=== PATIENT | male | born 1955 | race Caucasian/White ===

== ENCOUNTER 2021-06-16 19:09 | Emergency (ER) | payer SELFPAY ==
[2021-06-16] MEDS ORDERED: Diphtheria,Pertussis(Acell),Tetanus Vaccine 0.5 ML SDV IM ONE (19:20)
--- NOTE | 2021-06-16 19:55 | EDM.PDOC ---
ED HPI GENERAL MEDICAL PROBLEM - General Chief Complaint: Laceration Stated Complaint: CUT FINGER Time Seen by Provider: 06/16/21 19:10 Source of Information: Reports: Patient History Limitations: Reports: No Limitations - History of Present Illness INITIAL COMMENTS - FREE TEXT/NARRATIVE: THis patient presents to the ED for evaluation of a finger laceration. He states he was using a wood box maker when he injured his left 2nd digit. He states there was a lot of blood but now "it looks better." He denies other injuries or concerns. He denies recent illnesses, fever, cough. ED ROS GENERAL - Review of Systems Review Of Systems: Comprehensive ROS is negative, except as noted in HPI. ED EXAM, SKIN/RASH Exam: See Below Exam Limited By: No Limitations General Appearance: Alert, No Apparent Distress Eye Exam: Bilateral Eye: PERRL Ears: Normal External Exam Nose: Normal Inspection Head: Atraumatic, Normocephalic Neck: Normal Inspection, Full Range of Motion Respiratory/Chest: No Respiratory Distress, No Accessory Muscle Use Neurological: Alert, Oriented Skin: Warm, Dry, Intact, Wound/Incision (1 cm superficial laceration to the dorsum of the (L) 2nd digit between the MCP and the PIP joints. Distal CMS intact.) ED SKIN PROCEDURES - Laceration/Wound Repair Left Digit - 2nd (Index) Appearance: Superficial Distal NVT: Neuro & Vascular Intact Skin Prep: Chlorhexidine (Hibiciens), Saline Closed with: Steri-Strips (4; wound closed and bleeding controlled on arrival.) Lac/Wound length In cm: 1 Sterile Dressing Applied: Provider Tetanus Status Addressed: Yes Complications: No Course - Re-Assessments/Exams Free Text/Narrative Re-Assessment/Exam: This patient presents to the emergency room for evaluation of a laceration to his left second digit. The wound was carefully evaluated and explored. The laceration was closed with Steri-Strips as noted above. There is no evidence of muscular, tendon, or bony damage with this laceration. There are no signs of foreign body. Possible complications including infection, and scarring were reviewed with the patient. Follow-up with his primary care provider is indicated for 5 to 7 days as needed. He was given a Tdap booster prior to discharge. The patient was stable at the time of discharge. 06/16/21 21:36 06/16/21 21:38 Departure - Departure Time of Disposition: 19:30 Disposition: Home, Self-Care 01 Condition: Good Clinical Impression: Finger laceration - Discharge Information *PRESCRIPTION DRUG MONITORING PROGRAM REVIEWED*: Not Applicable *COPY OF PRESCRIPTION DRUG MONITORING REPORT IN PATIENT SARAH: Not Applicable Instructions: Laceration Care, Adult Forms: ED Department Discharge Additional Instructions: monitor site for signs of infection - redness, warmth, foul drainage - keep site clean, do not soak in water. Aplpy antibiotic ointment and cover with bandage.
== END 2021-06-16 19:45 | disposition home or self-care (01) ==
LOC: LB.ED 19:09
DX: S61.211A Laceration without foreign body of left index finger without damage to nail, initial encounter (principal); Z23 Encounter for immunization; W26.8XXA Contact with other sharp object(s), not elsewhere classified, initial encounter
CPT/HCPCS: 90471; 90715; 99282